=== PATIENT | male | born 1995 | race Caucasian/White ===

== ENCOUNTER 2017-04-25 07:12 | Day surgery (SDC) | payer OTHER ==
[~2017-04-25 07:12] MED LIST: EPINEPHrine 1 MG/ML SDV ONE; Lactated Ringers 1,000 ML IV SCH; Lidocaine 1%/Sod Bicarbonate in NS 8.4% 1 ML Syringe PRN; Ropivacaine 0.5% 5 MG/ML 30 ML SDV ONE; Sodium Chloride 0.9% 10 ML Syringe FLUSH PRN
[2017-04-25] MEDS ORDERED: Rocuronium 50 MG/5 ML Vial ONE (07:27)
[2017-04-25] MEDS ORDERED: Propofol 200 MG/20 ML SDV ONE (07:27)
[2017-04-25] MEDS ORDERED: Ondansetron 4 MG/2 ML SDV ONE (07:27)
[2017-04-25] MEDS ORDERED: Midazolam 1 MG/ML 2 ML SDV ONE (07:28)
[2017-04-25] MEDS ORDERED: fentaNYL 100 MCG/2 ML SDV ONE ×2 (07:28)
[2017-04-25] MEDS ORDERED: Lidocaine 1% 2 ML ONE (07:30)
[2017-04-25] MEDS ORDERED: Lidocaine 1% 4 ML ONE (07:31)
--- NOTE | 2017-04-25 07:39 | PCM.PREANE ---
Preanesthetic Assessment - Anesthesia/Transfusion/Family Hx Anesthesia History: Prior Anesthesia Without Reaction Family History of Anesthesia Reaction: No Transfusion History: No Prior Transfusion(s) - Review of Systems General: No Symptoms Pulmonary: No Symptoms Cardiovascular: No Symptoms Gastrointestinal: No Symptoms Neurological: No Symptoms Other: Reports: None - Physical Assessment NPO Status Date: 04/24/17 NPO Status Time: 00:00 Pulse: 57 O2 Sat by Pulse Oximetry: 100 Respiratory Rate: 16 Blood Pressure: 115/68 Temperature: 36.5 C Height: 1.83 m Weight: 99.79 kg ASA Class: 1 Mental Status: Alert & Oriented x3 Airway Class: Mallampati = 1 Dentition: Reports: Normal Dentition Thyro-Mental Finger Breadths: 3 Mouth Opening Finger Breadths: 3 ROM/Head Extension: Full Lungs: Clear to Auscultation, Normal Respiratory Effort Cardiovascular: Regular Rate, Regular Rhythm, No Murmurs - Lab Values: Laboratory Last Values WBC 3.92 K/mm3 (4.23-9.07) L 04/16/17 10:44 RBC 5.24 M/mm3 (4.63-6.08) 04/16/17 10:44 Hgb 15.8 gm/L (13.7-17.5) 04/16/17 10:44 Hct 45.5 % (40.1-51.0) 04/16/17 10:44 MCV 86.8 fl (79.0-92.2) 04/16/17 10:44 MCH 30.2 pg (25.7-32.2) 04/16/17 10:44 MCHC 34.7 g/dl (32.2-35.5) 04/16/17 10:44 RDW Std Deviation 38.9 fL (35.1-43.9) 04/16/17 10:44 Plt Count 228 K/mm3 (163-337) 04/16/17 10:44 MPV 9.1 fl (9.4-12.3) L 04/16/17 10:44 Neut % (Auto) 52.5 % (34.0-67.9) 04/16/17 10:44 Lymph % (Auto) 37.5 % (21.8-53.1) 04/16/17 10:44 [place] % (Auto) 7.4 % (5.3-12.2) 04/16/17 10:44 Eos % (Auto) 1.8 (0.8-7.0) 04/16/17 10:44 Baso % (Auto) 0.8 % (0.1-1.2) 04/16/17 10:44 Neut # (Auto) 2.06 K/mm3 (1.78-5.38) 04/16/17 10:44 Lymph # (Auto) 1.47 K/mm3 (1.32-3.57) 04/16/17 10:44 [place] # (Auto) 0.29 K/mm3 (0.30-0.82) L 04/16/17 10:44 Eos # (Auto) 0.07 K/mm3 (0.04-0.54) 04/16/17 10:44 Baso # (Auto) 0.03 K/mm3 (0.01-0.08) 04/16/17 10:44 Sodium 140 mEq/L (136-145) 04/16/17 10:44 Potassium 4.4 mEq/L (3.5-5.1) 04/16/17 10:44 Chloride 102 mEq/L (98-107) 04/16/17 10:44 Carbon Dioxide 28 mEq/L (21-32) 04/16/17 10:44 Anion Gap 14.4 (5-15) 04/16/17 10:44 BUN 29 mg/dL (7-18) H 04/16/17 10:44 Creatinine 1.6 mg/dL (0.7-1.3) H 04/16/17 10:44 Est Cr Clr Drug Dosing 78.81 mL/min 04/16/17 10:44 Estimated GFR (MDRD) 54 mL/min (>60) 04/16/17 10:44 BUN/Creatinine Ratio 18.1 (14-18) H 04/16/17 10:44 Glucose 104 mg/dL (74-106) 04/16/17 10:44 Calcium 9.8 mg/dL (8.5-10.1) 04/16/17 10:44 Total Bilirubin 0.6 mg/dL (0.2-1.0) 04/16/17 10:44 AST 43 U/L (15-37) H 04/16/17 10:44 ALT 64 U/L (16-63) H 04/16/17 10:44 Alkaline Phosphatase 83 U/L (46-116) 04/16/17 10:44 Total Protein 7.5 g/dl (6.4-8.2) 04/16/17 10:44 Albumin 4.4 g/dl (3.4-5.0) 04/16/17 10:44 Globulin 3.1 gm/dL 04/16/17 10:44 Albumin/Globulin Ratio 1.4 (1-2) 04/16/17 10:44 MRSA (PCR) Negative 04/16/17 10:44 - Allergies Allergies/Adverse Reactions: Allergies Allergy/AdvReac Type Severity Reaction Status Date / Time diphenhydramine HCl AdvReac Hyperactivi Verified 04/24/17 16:02 [From Benadryl] ty - Anesthesia Plan Pre-Op Medication Ordered: None - Acknowledgements Anesthesia Type Planned: General Anesthesia, Regional Block (interscalnene block for post-op pain control) Pt an Appropriate Candidate for the Planned Anesthesia: Yes Alternatives and Risks of Anesthesia Discussed w Pt/Guardian: Yes Pt/Guardian Understands and Agrees with Anesthesia Plan: Yes PreAnesthesia Questionnaire HEENT History: Reports: Impaired Vision Cardiovascular History: Reports: None Respiratory History: Reports: None Gastrointestinal History: Reports: None Genitourinary History: Reports: None 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 Neurological History: Reports: None Psychiatric History: Reports: None Endocrine/Metabolic History: Reports: None Hematologic History: Reports: None Immunologic History: Reports: None Oncologic (Cancer) History: Reports: None Dermatologic History: Reports: None - Past Surgical History HEENT Surgical History: Reports: None Cardiovascular Surgical History: Reports: None Respiratory Surgical History: Reports: None GI Surgical History: Reports: None Female Surgical History: Reports: None Male Surgical History: Reports: None Endocrine Surgical History: Reports: None Neurological Surgical History: Reports: None Musculoskeletal Surgical History: Reports: Other (See Below) Other Musculoskeletal Surgeries/Procedures:: Left shoulder labral repar 2010. Right shoulder repair with biceps tendon repair in 2013. Left patellar tendon repair 2016 Oncologic Surgical History: Reports: None Dermatological Surgical History: Reports: None - SUBSTANCE USE Smoking Status *Q: Never Smoker Tobacco Use Within Last Twelve Months: Snuff/Dip Second Hand Smoke Exposure: No Days Per Week of Alcohol Use: 1 Number of Drinks Per Day: 0 Total Drinks Per Week: 0 Recreational Drug Use History: No Recreational Drug Type: Reports: Heroin - HOME MEDS Home Medications: Home Meds Acetaminophen/HYDROcodone [[place] 325-5 MG] 1 - 2 tab PO Q6H PRN #40 tablet 04/24 [Rx] Cyclobenzaprine [Flexeril] 10 mg PO Q8H PRN #40 tablet 04/24/17 [Rx] Niacin 500 mg PO DAILY 04/24/17 [History] - CURRENT (IN HOUSE) MEDS Current Meds: Current Medications Lactated Ringer's (Ringers, Lactated) 1,000 mls @ 125 mls/hr IV ASDIRECTED DAWIT Stop: 04/25/17 23:00 Lidocaine/Sodium Bicarbonate (Buffered Lidocaine 1% In Ns 8.4%) 0.25 ml .XX ONETIME PRN PRN Reason: Prior to IV Start Stop: 04/25/17 18:00 Sodium Chloride (Saline Flush) 10 ml FLUSH ASDIRECTED PRN PRN Reason: Keep Vein Open Stop: 04/25/17 18:00 Discontinued Medications Epinephrine HCl (Adrenalin 1:1000) Confirm Administered Dose 1 mg .ROUTE .STK- MED ONE Stop: 04/25/17 06:54 Fentanyl (Sublimaze) Confirm Administered Dose 100 mcg .ROUTE .STK-MED ONE Stop: 04/25/17 07:29 Fentanyl (Sublimaze) Confirm Administered Dose 100 mcg .ROUTE .STK-MED ONE Stop: 04/25/17 07:29 Lidocaine HCl (Xylocaine-Mpf 1%) Confirm Administered Dose 2 mls @ as directed .ROUTE .STK-MED ONE Stop: 04/25/17 07:31 Lidocaine HCl (Xylocaine-Mpf 1%) Confirm Administered Dose 4 mls @ as directed .ROUTE .STK-MED ONE Stop: 04/25/17 07:32 Midazolam HCl (Versed 1 Mg/Ml) Confirm Administered Dose 2 mg .ROUTE .STK-MED ONE Stop: 04/25/17 07:29 Ondansetron HCl (Zofran) Confirm Administered Dose 4 mg .ROUTE .STK-MED ONE Stop: 04/25/17 07:28 Propofol (Diprivan 20 Ml) Confirm Administered Dose 200 mg .ROUTE .STK-MED ONE Stop: 04/25/17 07:28 Rocuronium [place] (Zemuron) Confirm Administered Dose 50 mg .ROUTE .STK-MED ONE Stop: 04/25/17 07:28 Ropivacaine (Naropin 0.5%) Confirm Administered Dose 30 ml .ROUTE .STK-MED ONE Stop: 04/25/17 06:54
--- NOTE | 2017-04-25 07:39 | PCM.PREANE ---
Preanesthetic Assessment - Physical Assessment Height: 1.83 m Weight: 99.79 kg - Lab Values: Laboratory Last Values WBC 3.92 K/mm3 (4.23-9.07) L 04/16/17 10:44 RBC 5.24 M/mm3 (4.63-6.08) 04/16/17 10:44 Hgb 15.8 gm/L (13.7-17.5) 04/16/17 10:44 Hct 45.5 % (40.1-51.0) 04/16/17 10:44 MCV 86.8 fl (79.0-92.2) 04/16/17 10:44 MCH 30.2 pg (25.7-32.2) 04/16/17 10:44 MCHC 34.7 g/dl (32.2-35.5) 04/16/17 10:44 RDW Std Deviation 38.9 fL (35.1-43.9) 04/16/17 10:44 Plt Count 228 K/mm3 (163-337) 04/16/17 10:44 MPV 9.1 fl (9.4-12.3) L 04/16/17 10:44 Neut % (Auto) 52.5 % (34.0-67.9) 04/16/17 10:44 Lymph % (Auto) 37.5 % (21.8-53.1) 04/16/17 10:44 [place] % (Auto) 7.4 % (5.3-12.2) 04/16/17 10:44 Eos % (Auto) 1.8 (0.8-7.0) 04/16/17 10:44 Baso % (Auto) 0.8 % (0.1-1.2) 04/16/17 10:44 Neut # (Auto) 2.06 K/mm3 (1.78-5.38) 04/16/17 10:44 Lymph # (Auto) 1.47 K/mm3 (1.32-3.57) 04/16/17 10:44 [place] # (Auto) 0.29 K/mm3 (0.30-0.82) L 04/16/17 10:44 Eos # (Auto) 0.07 K/mm3 (0.04-0.54) 04/16/17 10:44 Baso # (Auto) 0.03 K/mm3 (0.01-0.08) 04/16/17 10:44 Sodium 140 mEq/L (136-145) 04/16/17 10:44 Potassium 4.4 mEq/L (3.5-5.1) 04/16/17 10:44 Chloride 102 mEq/L (98-107) 04/16/17 10:44 Carbon Dioxide 28 mEq/L (21-32) 04/16/17 10:44 Anion Gap 14.4 (5-15) 04/16/17 10:44 BUN 29 mg/dL (7-18) H 04/16/17 10:44 Creatinine 1.6 mg/dL (0.7-1.3) H 04/16/17 10:44 Est Cr Clr Drug Dosing 78.81 mL/min 04/16/17 10:44 Estimated GFR (MDRD) 54 mL/min (>60) 04/16/17 10:44 BUN/Creatinine Ratio 18.1 (14-18) H 04/16/17 10:44 Glucose 104 mg/dL (74-106) 04/16/17 10:44 Calcium 9.8 mg/dL (8.5-10.1) 04/16/17 10:44 Total Bilirubin 0.6 mg/dL (0.2-1.0) 04/16/17 10:44 AST 43 U/L (15-37) H 04/16/17 10:44 ALT 64 U/L (16-63) H 04/16/17 10:44 Alkaline Phosphatase 83 U/L (46-116) 04/16/17 10:44 Total Protein 7.5 g/dl (6.4-8.2) 04/16/17 10:44 Albumin 4.4 g/dl (3.4-5.0) 04/16/17 10:44 Globulin 3.1 gm/dL 04/16/17 10:44 Albumin/Globulin Ratio 1.4 (1-2) 04/16/17 10:44 MRSA (PCR) Negative 04/16/17 10:44 - Allergies Allergies/Adverse Reactions: Allergies Allergy/AdvReac Type Severity Reaction Status Date / Time diphenhydramine HCl AdvReac Hyperactivi Verified 04/24/17 16:02 [From Benadryl] ty PreAnesthesia Questionnaire HEENT History: Reports: Impaired Vision Cardiovascular History: Reports: None Respiratory History: Reports: None Gastrointestinal History: Reports: None Genitourinary History: Reports: None 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 Neurological History: Reports: None Psychiatric History: Reports: None Endocrine/Metabolic History: Reports: None Hematologic History: Reports: None Immunologic History: Reports: None Oncologic (Cancer) History: Reports: None Dermatologic History: Reports: None - Past Surgical History HEENT Surgical History: Reports: None Cardiovascular Surgical History: Reports: None Respiratory Surgical History: Reports: None GI Surgical History: Reports: None Female Surgical History: Reports: None Male Surgical History: Reports: None Endocrine Surgical History: Reports: None Neurological Surgical History: Reports: None Musculoskeletal Surgical History: Reports: Other (See Below) Other Musculoskeletal Surgeries/Procedures:: Left shoulder labral repar 2010. Right shoulder repair with biceps tendon repair in 2013. Left patellar tendon repair 2016 Oncologic Surgical History: Reports: None Dermatological Surgical History: Reports: None - SUBSTANCE USE Smoking Status *Q: Never Smoker Tobacco Use Within Last Twelve Months: Snuff/Dip Recreational Drug Use History: No Recreational Drug Type: Reports: Heroin - HOME MEDS Home Medications: Home Meds Acetaminophen/HYDROcodone [[place] 325-5 MG] 1 - 2 tab PO Q6H PRN #40 tablet 04/24 [Rx] Cyclobenzaprine [Flexeril] 10 mg PO Q8H PRN #40 tablet 04/24/17 [Rx] Niacin 500 mg PO DAILY 04/24/17 [History] - CURRENT (IN HOUSE) MEDS Current Meds: Current Medications Lactated Ringer's (Ringers, Lactated) 1,000 mls @ 125 mls/hr IV ASDIRECTED DAWIT Stop: 04/25/17 23:00 Lidocaine/Sodium Bicarbonate (Buffered Lidocaine 1% In Ns 8.4%) 0.25 ml .XX ONETIME PRN PRN Reason: Prior to IV Start Stop: 04/25/17 18:00 Sodium Chloride (Saline Flush) 10 ml FLUSH ASDIRECTED PRN PRN Reason: Keep Vein Open Stop: 04/25/17 18:00 Discontinued Medications Epinephrine HCl (Adrenalin 1:1000) Confirm Administered Dose 1 mg .ROUTE .STK- MED ONE Stop: 04/25/17 06:54 Fentanyl (Sublimaze) Confirm Administered Dose 100 mcg .ROUTE .STK-MED ONE Stop: 04/25/17 07:29 Fentanyl (Sublimaze) Confirm Administered Dose 100 mcg .ROUTE .STK-MED ONE Stop: 04/25/17 07:29 Lidocaine HCl (Xylocaine-Mpf 1%) Confirm Administered Dose 2 mls @ as directed .ROUTE .STK-MED ONE Stop: 04/25/17 07:31 Lidocaine HCl (Xylocaine-Mpf 1%) Confirm Administered Dose 4 mls @ as directed .ROUTE .STK-MED ONE Stop: 04/25/17 07:32 Midazolam HCl (Versed 1 Mg/Ml) Confirm Administered Dose 2 mg .ROUTE .STK-MED ONE Stop: 04/25/17 07:29 Ondansetron HCl (Zofran) Confirm Administered Dose 4 mg .ROUTE .STK-MED ONE Stop: 04/25/17 07:28 Propofol (Diprivan 20 Ml) Confirm Administered Dose 200 mg .ROUTE .STK-MED ONE Stop: 04/25/17 07:28 Rocuronium [place] (Zemuron) Confirm Administered Dose 50 mg .ROUTE .STK-MED ONE Stop: 04/25/17 07:28 Ropivacaine (Naropin 0.5%) Confirm Administered Dose 30 ml .ROUTE .STK-MED ONE Stop: 04/25/17 06:54
[2017-04-25] MEDS ORDERED: EPINEPHrine 1 MG/ML 30 ML MDV ONE (08:04)
[2017-04-25] MEDS ORDERED: Bupivacaine 0.25% 30 ML SDV ONE (08:05)
[2017-04-25] MEDS ORDERED: ceFAZolin 1 GM Vial ONE (08:19)
[2017-04-25] MEDS ORDERED: Ketorolac 30 MG/ML SDV IVPUSH PRN (10:28)
[2017-04-25] MEDS ORDERED: HYDROmorphone 0.5 MG/0.5 ML Syringe IVPUSH PRN (10:28)
[2017-04-25] MEDS: fentaNYL 100 MCG/2 ML SDV IVPUSH PRN ×2 (10:36→11:00)
[2017-04-25 11:46] VITALS: BP 107/64
--- NOTE | 2017-04-25 13:08 | PCM.SN ---
- Free Text/Narrative Note: Note: 04/25/2017 1305 111/69 58 100% 12 Surgeon and pt request post-op pain control for left shoulder surgery risk of block failure, facial numbness, site infection, and chronic pain discussed with pt and agreed to proceed. All standard monitors est. EKG, BP, Pulse Ox, 2L O2 and 2ml versed, 2ml fentanyl pre-op dx. left shoulder pain post-op dx left shoulder arthroscopy pt for interscalene block placement all standard monitors est. pt ID time out performed IV sedation 2ml versed, 2ml fentanyl, 2L NC O2, sterile prep and drape of left neck and shoulder U/S placed with visualization of brachial plexus from clavicle to cricoid local skin infiltration 22ga. Stimplex A insulated needle visualized at brachial plexus nerve stimulator at .9 Shanel Amps stop at .4 Shanel Amps with good bicep twitch with 1ml NaCl and lose of twitch neg aspirations every 5ml of 0.5% ropivacaine and 1:200,000 epi total of 30ml injected all done with U/S guidance needle withdrawn no complications noted pt tolerated procedure well block settling in start procedure at 0747 end procedure at 0803 107/69 68 99% 10
--- NOTE | 2017-05-03 13:36 | PCM.OPNOTE ---
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
--- NOTE | 2017-05-03 14:20 | OR ---
DATE OF OPERATION: 04/25/2017 SURGEON: Alireza Rooney MD OPERATION PERFORMED: Left shoulder video arthroscopy with anterior capsulorrhaphy with Bankart repair with limited debridement of the subacromial space. PREOPERATIVE DIAGNOSIS: Left shoulder anterior instability with left shoulder pain. POSTOPERATIVE DIAGNOSIS: Left shoulder anterior instability with left shoulder pain. ANESTHESIA: General endotracheal intubation with interscalene block. ANESTHESIA PROVIDER: Payam Dillard CRNA SENIOR ASSOCIATE: Beatriz Shannon LPN ESTIMATED BLOOD LOSS: 5 mL. COMPLICATIONS: None. CONDITION: Stable. DESCRIPTION OF PROCEDURE: The patient was identified in the preop holding area. Proper site was marked and identified by the surgeon. The patient was taken back to the operating theater where, after adequate anesthesia, the patient was placed in lazy right lateral decubitus position. A wedge was placed posteriorly. The patient was secured to the table. All bony prominences were well padded. The left shoulder was then sterilely prepped and draped in the usual sterile fashion. OR-wide time-out was performed. The patient received 2 g of IV Ancef, and 12 pounds of traction was applied to the left upper extremity. At this time, standard posterior incision was made. The scope trocar was introduced into the glenohumeral joint. At this time, there was noted to be significant anterior capsular stripping with even previous suture noted on the anterior capsule just scarred into the stripped off capsule. At this time, the patient was noted to have significant fraying of the superior labrum as well as some fraying of the posterior labrum. There was only one small cartilage defect noted over the anterior portion. There was noted to be a small, old, Hill-Sachs lesion as well. Otherwise, the undersurface of the rotator cuff was found to be completely intact, and the biceps tendon showed no signs of erythema or fraying. At this time, anterior portal was created with the use of a spinal needle. Starting at the most inferior portion on the anterior capsule, a #2 FiberWire was passed with the use of a curved suture passer through the capsule and anterior labrum at the most inferior portion of the glenoid. Next, a drill hole was drilled in the inferior portion of the glenoid for a 2.3 mm Arthrex PushLock labral anchor. The suture was then tightened, and the labral anchor was impacted into place. It was found to have good sabianist of the anterior capsule as well as labrum. At this time, starting from this position, 2 more 2.3 mm PushLock were brought up both at the midportion of the glenoid and at the superior portion just near the attachment of the biceps tendon. There was noted to be significant tightening of the anterior capsule with good tension noted with the probe. At this time, I removed the previous suture that was noted to be free-floating within the glenohumeral joint. Once there was noted to be significant re-tensioning of the anterior capsule, it was decided that 3 anchors would be enough. Debridement was also then done of the fraying of the capsule and posterior labrum. Attention was turned to the subacromial space. The scope trocar was placed in the subacromial space. The rotator cuff was found to be intact, but there was a significant amount of synovitis, and debridement was done of the subacromial space at this time secondary to the large amount of synovitis which was resected at this time. At this time, from the x-rays, the patient had type 1 acromion. So, a subacromial decompression was not completed at this time. Excess saline was drained from the shoulder. 3-0 nylon simple suture was used for closure of the skin. The patient was placed in a sterile soft dressing and a pillow sling and sent to the PACU in stable condition. KATE /[id number]
== END 2017-04-25 12:09 | disposition home or self-care (01) ==
LOC: JD.SDS 07:12
PROVIDERS: ATTEND Orthopaedic Surgery
DX: M25.312 Other instability, left shoulder (principal); M25.512 Pain in left shoulder; Z88.8 Allergy status to other drugs, medicaments and biological substances; Z79.899 Other long term (current) drug therapy
CPT/HCPCS: 29806; 29822; 36415; 80053; 85025; 87641; C1713; J0171; J0690; J1170; J2250; J2405; J2795; J3010; J3490; J7120; 01620; J2704

== ENCOUNTER 2024-10-14 18:36 | Emergency (ER) | payer BC ==
[2024-10-14] MEDS ORDERED: Naloxone 0.4 MG/ML SDV IVPUSH PRN (20:40)
[2024-10-14] MEDS: Morphine 4 MG/ML Syringe IM ONE (20:49)
[2024-10-14 21:30] VITALS: BP 121/59; PULSE 66
== END 2024-10-14 22:00 | disposition home or self-care (01) ==
LOC: JD.ED 18:36
DX: S32.039A Unspecified fracture of third lumbar vertebra, initial encounter for closed fracture (principal); Z88.8 Allergy status to other drugs, medicaments and biological substances; Z79.899 Other long term (current) drug therapy; W18.30XA Fall on same level, unspecified, initial encounter; Y92.39 Other specified sports and athletic area as the place of occurrence of the external cause
CPT/HCPCS: 72131; 72131-26; 72192; 72192-26; 96372; 99283; 99284; J2270